=== PATIENT | male | born 1995 | race Caucasian/White ===

== ENCOUNTER 2016-07-23 14:30 | Emergency (ER) | payer OTHER ==
[2016-07-23 14:52] VITALS: BP 143/64; RESP 20; TEMP 98.4
[2016-07-23] MEDS ORDERED: IPRATROPIUM-ALBUTEROL 3 ML NEB INHALATION STA (15:12)
--- NOTE | 2016-07-23 15:16 | ED ---
General Adult HPI - General Chief complaint: Upper Respiratory Infection Stated complaint: congestion Time Seen by Provider: 07/23/16 15:11 Source: patient, RN notes reviewed Mode of arrival: ambulatory Limitations: no limitations - History of Present Illness Initial comments: Patient 20-year-old male who presents emergency room today with a chief complaint cough congestion 7 days. He does admit that he was at [facility] emergency room today's ago. Does admit to an x-ray. Admits that he was told he had calmed cold. Advised to continue myop-gal-[id number] medications. This does not seem to be getting any better. States is having more cough congestion. Does admit to positive sputum production it's been green in color. Patient denies any other complaints associated symptoms. Patient denies any recent fever, chills, shortness of breath, chest pain, back pain, abdominal pain , nausea or vomiting, numbness or tingling, dysuria or hematuria, constipation or diarrhea, headaches or visual changes, or any other complaints. - Related Data Home Medications Medication Instructions Recorded Confirmed Dextroamphetamine/Amphetamine 20 mg PO BID 12/12/15 07/23/16 [Adderall] Previous Rx's Medication Instructions Recorded Albuterol Inhaler [Ventolin Hfa 1 - 2 puff INHALATION Q4-6H PRN #1 07/23/16 Inhaler] inhaler Albuterol Nebulized [Ventolin 2.5 mg INHALATION Q4H PRN 10 Days 07/23/16 Nebulized] predniSONE 60 mg PO DAILY 5 Days 07/23/16 Allergies Allergy/AdvReac Type Severity Reaction Status Date / Time No Known Allergies Allergy Verified 07/23/16 14:52 Review of Systems ROS Statement: Those systems with pertinent positive or pertinent negative responses have been documented in the HPI. ROS Other: All systems not noted in ROS Statement are negative. 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 Eye: Pupils are equal, round and reactive to light, extra-ocular movements are intact. No nystagmus. There is normal conjunctiva bilaterally. No signs of icterus. Ears, nose, mouth and throat: There are moist mucous membranes and no oral lesions. Neck: The neck is supple, there is no tenderness or JVD. Cardiovascular: There is a regular rate and rhythm. No murmur, rub or gallop is appreciated. Respiratory: Expiratory wheeze bilaterally, respirations are non-labored, breath sounds are equal. No stridor, rales, or rhonchi. Musculoskeletal: Normal ROM, no tenderness. Strength 5/5. Sensation intact. Pulses equal bilaterally 2+. Neurological: A&O x 3. CN II-XII intact, There are no obvious motor or sensory deficits. Coordination appears grossly intact. Speech is normal. Skin: Skin is warm and dry and no rashes or lesions are noted. Psychiatric: Cooperative, appropriate mood & affect, normal judgment. Limitations: no limitations Course Vital Signs 07/23/16 14:50 Temperature 98.4 F Pulse Rate 114 H Respiratory 20 Rate Blood Pressure 143/64 O2 Sat by Pulse 94 L Oximetry Medical Decision Making - Medical Decision Making X-ray reviewed shows no acute abnormalities. No sign of pneumonia. Started on breathing treatments and steroids. Advised follow-up over the next 2 days or return if any symptoms increase or worsen. Disposition Clinical Impression: Acute bronchitis Disposition: HOME SELF-CARE Condition: Good Instructions: Acute Bronchitis (ED) Additional Instructions: Please use medication as discussed. Please follow-up with family doctor in the next 2 days of symptoms have not improved. Please return to emergency room if the symptoms increase or worsen or for any other concerns. Prescriptions: Albuterol Inhaler [Ventolin Hfa Inhaler] 1 - 2 puff INHALATION Q4-6H PRN #1 inhaler PRN Reason: Cough Albuterol Nebulized [Ventolin Nebulized] 2.5 mg INHALATION Q4H PRN 10 Days PRN Reason: Cough predniSONE 60 mg PO DAILY 5 Days Time of Disposition: 15:44
--- NOTE | 2016-07-23 15:22 | XR ---
EXAMINATION TYPE: XR chest 2V DATE OF EXAM: 07/23/2016 3:20 PM COMPARISON: 07/16/2014 HISTORY: Pain TECHNIQUE: Frontal and lateral views of the chest are obtained. FINDINGS: There is no focal air space opacity, pleural effusion, or pneumothorax seen. The cardiac silhouette size is within normal limits. The osseous structures are intact. IMPRESSION: No acute cardiopulmonary process.
[2016-07-23 15:54] VITALS: PULSE 104
== END 2016-07-23 15:54 | disposition home or self-care (01) ==
LOC: EC 14:30
DX: J20.9 Acute bronchitis, unspecified (principal); F17.200 Nicotine dependence, unspecified, uncomplicated; Z79.899 Other long term (current) drug therapy
CPT/HCPCS: 71020; 94640; 99283

== ENCOUNTER 2017-06-17 12:36 | Emergency (ER) | payer OTHER ==
[2017-06-17 12:53] VITALS: RESP 18
--- NOTE | 2017-06-17 13:10 | ED ---
General Adult HPI - General Chief complaint: ENT Stated complaint: face swelling Time Seen by Provider: 06/17/17 13:10 Source: patient Mode of arrival: ambulatory Limitations: no limitations - History of Present Illness Initial comments: Mathieu Shaikh is a 21-year-old male who presents to the emergency department today for evaluation of left lip swelling for 2 days duration. Patient reports he noticed lip swelling 2 days ago, is progressively worsened and is associated with significant pain. He does note that there is a small scab on the left lip but only minimal drainage. He has no history of skin infections and has not been on antibiotics in the past. He denies any trauma to the lip. He denies any fevers or chills. He reports he's had difficulty eating due to the swelling of his lip that he has been able to drink plenty. Patient also states that he does have a history of a rapid heart rate and is on Adderall daily which contributes to his rapid heart rate. - Related Data Home Medications Medication Instructions Recorded Confirmed Dextroamphetamine/Amphetamine 20 mg PO BID 12/12/15 06/17/17 [Adderall] diphenhydrAMINE [Benadryl] 50 mg PO HS PRN 06/17/17 06/17/17 Allergies Allergy/AdvReac Type Severity Reaction Status Date / Time No Known Allergies Allergy Verified 06/17/17 13:04 Review of Systems ROS Statement: Those systems with pertinent positive or pertinent negative responses have been documented in the HPI. ROS Other: All systems not noted in ROS Statement are negative. Constitutional: Denies: fever ENT: Reports: other (Swelling of left upper lip). 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 History of Any Multi-Drug Resistant Organisms: None Reported Additional Past Surgical History / Comment(s): oral surgery Past Psychological History: No Psychological Hx Reported Smoking Status: Current every day smoker Past Alcohol Use History: None Reported Past Drug Use History: Marijuana General Exam Limitations: no limitations General appearance: alert, in no apparent distress Head exam: Present: atraumatic, normocephalic Eye exam: Present: normal appearance, PERRL ENT exam: Present: other (left upper lip swollen, small scab on lateral griffin border, fluctuant area palpated in lip) Neck exam: Absent: lymphadenopathy Respiratory exam: Absent: respiratory distress Cardiovascular Exam: Present: normal rhythm, tachycardia GI/Abdominal exam: Absent: soft, distended Extremities exam: Present: normal inspection Back exam: Present: normal inspection Neurological exam: Present: alert, oriented X3 Psychiatric exam: Present: normal affect, normal mood Skin exam: Present: warm, dry, intact Course Vital Signs 06/17/17 06/17/17 12:49 13:08 Temperature 98.4 F Pulse Rate 144 H 127 H Respiratory 18 Rate Blood Pressure 135/64 O2 Sat by Pulse 99 99 Oximetry Procedures - Incision & Drainage Consent Obtained: verbal consent Time Out Performed?: Yes Site: lip Anesthetic Used: lidocaine 1% I&D Cleaning Method: Chloroprep Needle Aspiration Performed?: Yes (purulent) I&D Drainage Obtained: Pus, Blood Culture Obtained?: No Patient Tolerated Procedure: well, no complications Medical Decision Making - Medical Decision Making Patient was seen and evaluated, history was obtained from patient Physical exam is concerning for a lumbar large abscess of the left upper lip, there is no surrounding lymphadenopathy the patient is otherwise well-appearing There is a scab on the lateral lip Warm hot washcloth was applied to the lip, the patient was anesthetized with 1% lidocaine, needle apsiration of purulent fluid was obtained. The scab was easily removed and copious purulent discharge was expressed from the lip PO Clindamycin was ordered and patient will be discharged on PO clinda for oral infection Disposition Clinical Impression: Abscess Disposition: HOME SELF-CARE Condition: Good Instructions: Abscess (ED) Referrals: Marixa Stern MD [Primary Care Provider] - 1-2 days Time of Disposition: 14:12
[2017-06-17] MEDS ORDERED: CLINDAMYCIN 150 MG CAP PO STA (13:55)
[2017-06-17 14:33] VITALS: BP 130/70; PULSE 115; TEMP 97.9
== END 2017-06-17 14:32 | disposition home or self-care (01) ==
LOC: EC 12:36
DX: K13.0 Diseases of lips (principal); F17.200 Nicotine dependence, unspecified, uncomplicated; Z79.899 Other long term (current) drug therapy
CPT/HCPCS: 10060; 99283

== ENCOUNTER → 2018-04-19 | Outpatient (CLI) | payer OTHER ==
--- NOTE | 2018-04-19 17:28 | MR ---
EXAMINATION TYPE: MR lumbar spine wo con DATE OF EXAM: 04/19/2018 COMPARISON: Prior lumbar MRI 10/24/2015 HISTORY: Low Back Pain TECHNIQUE: Multiplanar, multisequence images of the lumbar spine were acquired. L1-L2: Normal disc appearance without desiccation. No herniation, protrusion or disc bulging. No ca nal stenosis is present. Foramina are patent bilaterally. L2-L3: Normal disc appearance without desiccation. No herniation, protrusion or disc bulging. No ca nal stenosis is present. Foramina are patent bilaterally. L3-L4: Normal disc appearance without desiccation. No herniation, protrusion or disc bulging. No ca nal stenosis is present. Foramina are patent bilaterally. L4-L5: Loss of disc height and signal is present as on prior compatible with disc desiccation and deg enerative disc disease, there is a central posterior disc herniation as on prior exam causing some mi ld central stenosis similar to prior. Lateral extension of endplate disc complex again noted causing some mild foraminal encroachment. L5-S1: Loss of disc height and signal is again seen compatible disc desiccation and degenerative disc disease, there is a posterior central, right paracentral disc herniation contacting the anterior the lana sac and likely the proximal S1 nerve root greater on the right than on the left. No significant c entral canal stenosis. Lateral extension of endplate disc complex again seen encroaches somewhat on t he foramina. Lumbar segments are intact. No paraspinal masses are identified. Conus medullaris has a normal appe arance. Lumbar vertebral bodies show stable height, alignment, bone marrow signal. IMPRESSION: Degenerative disc disease is similar to prior exam. There are disc herniations as described.
--- NOTE | 2018-04-20 12:47 | MR ---
EXAMINATION TYPE: MR shoulder RT wo con DATE OF EXAM: 04/19/2018 COMPARISON: None HISTORY: Rt SHoulder Pain TECHNIQUE: Multiplanar, multisequence imaging of the right shoulder is performed without contrast. FINDINGS: Rotator Cuff: There is abnormal increased signal at the level of the rotator cuff insertion suggestiv e of a partial thickness tear of the infraspinatus tendon, fluid signal is present at this level Acromioclavicular Joint: Mild fluid signal present, no significant hypertrophic change however Glenohumeral Joint: Intact Labrum: The labrum appears grossly intact given limitation of non-arthrogram study. Biceps Tendon: The long head of biceps is in normal location within bicipital groove. Some fluid sign al present along the long head of biceps tendon Bone marrow signal: No focal abnormal marrow signal is appreciated. Other: No additional significant abnormality is appreciated. IMPRESSION: Partial thickness tear the rotator cuff tendon
== END ==
LOC: RADMRIMAIN 11:41
PROVIDERS: ATTEND Internal Medicine
DX: M51.26 Other intervertebral disc displacement, lumbar region (principal); M51.36 Other intervertebral disc degeneration, lumbar region; S46.011A Strain of muscle(s) and tendon(s) of the rotator cuff of right shoulder, initial encounter
CPT/HCPCS: 72148

== ENCOUNTER 2019-01-19 10:33 | Emergency (ER) | payer OTHER ==
[2019-01-19 10:38] VITALS: RESP 18
[2019-01-19] MEDS ORDERED: methylPREDNISolone SOD SUCCI 125 MG/2 ML VIAL IM ONE (11:10)
[2019-01-19] MEDS ORDERED: HYDROmorphone 1 MG/ML 1 ML SYRINGE IM STA (11:10)
[2019-01-19] MEDS ORDERED: ORPHENADRINE 30 MG/ML 2 ML VIAL IM STA (11:10)
[2019-01-19] MEDS ORDERED: KETOROLAC 60 MG/2 ML VIAL IM STA (11:10)
--- NOTE | 2019-01-19 11:14 | ED ---
Back Pain HPI - General Chief Complaint: Back Pain/Injury Stated Complaint: Back pain Time Seen by Provider: 01/19/19 10:44 Source: patient, RN notes reviewed, old records reviewed Limitations: physical limitation - History of Present Illness Initial Comments: Patient is a 23-year-old male who presents emergency Department complaining of back pain. Getting worse over the past week. Patient reports that he is scheduled for an MRI in 2 weeks but will not be able to wait that long due to this pain. Patient reports he took a week off of work. Patient states that he went to see Dr. Alvarado he was given 6 Falcon rechecked the last 2 today. Patient states he's had no saddle anesthesias. Patient denies any changes in urination or bowel habits. Patient states that he's had pain shooting down the left leg. He denies any other symptoms. Patient reports that he has had multiple scans x- rays. He went to [facility] on Saturday for similar complaints. - Related Data Home Medications Medication Instructions Recorded Confirmed Dextroamphetamine/Amphetamine 20 mg PO TID 12/12/15 01/19/19 [Adderall] HYDROcodone/APAP 10-325MG [Falcon 1 tab PO BID PRN 01/19/19 01/19/19 10-325] Previous Rx's Medication Instructions Recorded HYDROcodone/APAP 5-325MG [Falcon 1 tab PO Q6HR PRN #12 tab 01/19/19 5-325] Ibuprofen 600 mg PO TID #20 tablet 01/19/19 Orphenadrine [Norflex] 100 mg PO Q12H #15 tablet.er 01/19/19 Allergies Allergy/AdvReac Type Severity Reaction Status Date / Time No Known Allergies Allergy Verified 01/19/19 10:46 Review of Systems ROS Statement: Those systems with pertinent positive or pertinent negative responses have been documented in the HPI. ROS Other: All systems not noted in ROS Statement are negative. Past Medical History Past Medical History: No Reported History Additional Past Medical History / Comment(s): right ankle tumor, chronic back pain History of Any Multi-Drug Resistant Organisms: None Reported Additional Past Surgical History / Comment(s): oral surgery Past Psychological History: No Psychological Hx Reported Smoking Status: Current every day smoker Past Alcohol Use History: None Reported Past Drug Use History: Marijuana General Exam - General Exam Comments Initial Comments: This is a 23-year-old male. Alert and oriented. Moderate discomfort. Patient is quite hostile. Limitations: physical limitation General appearance: alert, in no apparent distress Head exam: Present: atraumatic, normocephalic, normal inspection Eye exam: Present: normal appearance, PERRL, EOMI. Absent: scleral icterus, conjunctival injection, periorbital swelling ENT exam: Present: normal exam, mucous membranes moist Neck exam: Present: normal inspection. Absent: tenderness, meningismus, lymphadenopathy Respiratory exam: Present: normal lung sounds bilaterally. Absent: respiratory distress, wheezes, rales, rhonchi, stridor Cardiovascular Exam: Present: regular rate, normal rhythm, normal heart sounds. Absent: systolic murmur, diastolic murmur, rubs, gallop, clicks GI/Abdominal exam: Present: soft, normal bowel sounds. Absent: distended, tenderness, guarding, rebound, rigid Extremities exam: Present: normal inspection, full ROM, normal capillary refill. Absent: tenderness, pedal edema, joint swelling, calf tenderness Back exam: Present: normal inspection, other (tenderness over sciatic notch. ) Neurological exam: Present: alert, oriented X3, CN II-XII intact Psychiatric exam: Present: normal affect, normal mood Skin exam: Present: warm, dry, intact, normal color. Absent: rash Course Vital Signs 01/19/19 10:36 Temperature 97.5 F L Pulse Rate 94 Respiratory 18 Rate Blood Pressure 127/75 O2 Sat by Pulse 98 Oximetry Medical Decision Making - Medical Decision Making This patient's a 23-year-old male presents today with complaints of lower back pain rating on the left leg. His evidence of has a straight leg test. Normal pulses bilaterally. Patient denies any saddle anesthesia. Patient was quite hot hostile when I discussed that he needs to receive his MRI in 2 weeks. Patient stated "I need to Shit myself here for an MRI, I'll Do it." I discussed that protocol to get MRIs in the emergency department for leg sciatic back pain. He has no red flag symptoms. Patient was given IM pain medications. I discussed I'll discharge the Patient with a course of muscle relaxers and anti- inflammatory medicine. Discussed following up with orthopedic cost specialist. All questions answered. Disposition Clinical Impression: Lower back pain, Sciatica Disposition: HOME SELF-CARE Condition: Good Instructions (If sedation given, give patient instructions): Lumbar Radiculopathy (ED), Sciatica (ED) Additional Instructions: Patient is to call to see if you can get the MRI appointment sooner. Take the medications as prescribed. Have close follow-up with primary care doctor. Return to emergency department if any alarming signs or symptoms occur. Prescriptions: Ibuprofen 600 mg PO TID #20 tablet HYDROcodone/APAP 5-325MG [Falcon 5-325] 1 tab PO Q6HR PRN #12 tab PRN Reason: Pain Orphenadrine [Norflex] 100 mg PO Q12H #15 tablet.er Is patient prescribed a controlled substance at d/c from ED?: Yes If prescribed controlled substance>3 days was MAPS reviewed?: Prescribed <3 Days If opioid is for acute pain is fill amount 7 days or less?: Yes If Rx opioid, was Start Talking consent form obtained?: Yes Referrals: Marixa Stern MD [Primary Care Provider] - 1-2 days Deirdre Contreras DO [Doctor of Osteopathic Medicine] - 1-2 days Time of Disposition: 11:49
[2019-01-19 12:16] VITALS: BP 128/70; PULSE 89; TEMP 97.7
== END 2019-01-19 12:15 | disposition home or self-care (01) ==
LOC: EC 10:33
DX: M54.42 Lumbago with sciatica, left side (principal); F17.200 Nicotine dependence, unspecified, uncomplicated
CPT/HCPCS: 99283; 96372 ×4; J2360; J2930; J1885; J1170

== ENCOUNTER → 2019-01-28 | Outpatient (CLI) | payer OTHER ==
--- NOTE | 2019-01-29 14:55 | MR ---
EXAMINATION TYPE: MR lumbar spine wo con DATE OF EXAM: 01/28/2019 COMPARISON: 04/19/2018 HISTORY: Patient presents with chronic low back pain getting worse after a fall 2 weeks ago. TECHNIQUE: Multiplanar, multisequence images of the lumbar spine were acquired. FINDINGS: The vertebral bodies maintain normal vertebral body heights and alignment of the lumbar spi ne. The bone marrow signal is lower limits of normal. Conus medullaris is unremarkable terminating at T12-L1. Disc desiccation is seen at L4-L5 and L5-S1 with rudimentary disc at S1-S2. L1-L2: Normal disc appearance without desiccation. No herniation, protrusion or disc bulging. No ca nal stenosis is present. Foramina are patent bilaterally. L2-L3: Normal disc appearance without desiccation. No herniation, protrusion or disc bulging. No ca nal stenosis is present. Foramina are patent bilaterally. L3-L4: There is a small broad-based disc bulge without spinal canal stenosis nor neural foraminal verena rowing. L4-L5: There is a left paracentral disc herniation that has progressed in the interim. This now resol lloyd moderate spinal canal stenosis, particularly within the left lateral spinal canal is mild right n euroforaminal narrowing and moderate left foraminal narrowing. There is also impression upon the form ing L5 nerve root on the left. L5-S1: There is overall similar degree of the known right paracentral disc herniation abutting and pl aced a slight mass effect upon the forming S1 nerve root creating mild spinal canal stenosis and mini mal bilateral neural foraminal narrowing. IMPRESSION: 1. Progression of the left paracentral disc herniation size in comparison to the prior of 04/19/2018 n ow creating moderate spinal canal stenosis, particularly within the left lateral aspect of the spinal canal as well as on her left neural foraminal narrowing. There is impression upon the forming left L 5 nerve root. 2. Overall similar degree of the known right paracentral disc herniation at L5-S1 with slight mass ef fect on the forming right S1 nerve root and mild spinal canal stenosis. 3. No new compression deformity or bone marrow edema in this patient with increasing chronic low back pain after fall. 4. Bone marrow signal is lower limits of normal, which can be seen in chronic diseases, obesity, toba account support rep abuse, anemia or less likely myeloproliferative disorders. Correlate with CBC and patient's socia l history.
== END | disposition home or self-care (01) ==
LOC: RADMRIMAIN 16:37
PROVIDERS: ATTEND Internal Medicine
DX: M48.061 Spinal stenosis, lumbar region without neurogenic claudication (principal); M51.86 Other intervertebral disc disorders, lumbar region
CPT/HCPCS: 72148

== ENCOUNTER 2019-10-29 21:49 | Emergency (ER) | payer OTHER ==
--- NOTE | 2019-10-29 22:43 | ED ---
ENT HPI - General Chief complaint: ENT Stated complaint: sinus infection Time Seen by Provider: 10/29/19 22:01 Source: patient Mode of arrival: ambulatory Limitations: no limitations - History of Present Illness Initial comments: Patient is a 24-year-old male presenting to emergency Department with a chief complaint of a sinus infection. Patient states she developed the infection about 5 days ago. States he went to his primary care who given a prescription of amoxicillin and Levaquin. Patient states he only took 2 doses of the Levaquin but is not felt any significant improvement. Patient has a history of sinus infections. States he now feels some pressure behind his left ear but not pain. Does not report any pain with tugging of the year. Denies taking any medications to alleviate his symptoms. Patient is a smoker. Does report states, green nasal discharge. Does report occasional frontal sinus headache. - Related Data Home Medications Medication Instructions Recorded Confirmed Dextroamphetamine/Amphetamine 20 mg PO TID 12/12/15 01/19/19 [Adderall] HYDROcodone/APAP 10-325MG [[place] 1 tab PO BID PRN 01/19/19 01/19/19 10-325] Previous Rx's Medication Instructions Recorded HYDROcodone/APAP 5-325MG [[place] 1 tab PO Q6HR PRN #12 tab 01/19/19 5-325] Ibuprofen 600 mg PO TID #20 tablet 01/19/19 Orphenadrine [Norflex] 100 mg PO Q12H #15 tablet.er 01/19/19 Allergies Allergy/AdvReac Type Severity Reaction Status Date / Time No Known Allergies Allergy Verified 10/29/19 21:59 Review of Systems ROS Statement: Those systems with pertinent positive or pertinent negative responses have been documented in the HPI. ROS Other: All systems not noted in ROS Statement are negative. Past Medical History Past Medical History: No Reported History Additional Past Medical History / Comment(s): right ankle tumor, chronic back pain History of Any Multi-Drug Resistant Organisms: None Reported Additional Past Surgical History / Comment(s): oral surgery Past Psychological History: No Psychological Hx Reported Smoking Status: Current every day smoker Past Alcohol Use History: None Reported Past Drug Use History: Marijuana General Exam Limitations: no limitations General appearance: alert, in no apparent distress Head exam: Present: atraumatic, normocephalic, normal inspection Eye exam: Present: normal appearance, PERRL, EOMI Pupils: Present: normal accommodation ENT exam: Present: normal exam, normal oropharynx (Mild maxillary sinus tenderness.), mucous membranes moist, TM's normal bilaterally (No pain with tugging of the ears. External auditory canal within normal limits. No erythematous tympanic membrane or bulging.), normal external ear exam Neck exam: Present: normal inspection, full ROM Respiratory exam: Present: normal lung sounds bilaterally. Absent: respiratory distress, wheezes Cardiovascular Exam: Present: regular rate, normal rhythm, normal heart sounds Extremities exam: Present: normal inspection, full ROM Back exam: Present: normal inspection, full ROM Neurological exam: Present: alert, oriented X3 Psychiatric exam: Present: normal affect, normal mood Skin exam: Present: warm, dry, intact, normal color Course Vital Signs 10/29/19 21:56 Temperature 98.9 F Pulse Rate 112 H Respiratory 20 Rate Blood Pressure 144/86 O2 Sat by Pulse 99 Oximetry Medical Decision Making - Medical Decision Making Patient is a 24-year-old male presenting to the emergency department with a chief complaint of a sinus infection. Physical examination patient does have mild maxillary sinus tenderness. Patient is a smoker. I advised the patient to stop taking the Levaquin and amoxicillin. Patient will be started on a seven- day course of Augmentin. Patient was to take medication with food. Patient advised to buy [id number] Zyrtec. I counseled the patient for smoking cessation for greater than 3 minutesReturn parameters thoroughly discussed the patient was understanding and agreeable. Case discussed with physician. Disposition Clinical Impression: Sinus infection, Pressure sensation in left ear Disposition: HOME SELF-CARE Condition: Stable Instructions (If sedation given, give patient instructions): Sinusitis (ED) Additional Instructions: Take [id number] Zyrtec. Stop smoking. Take prescribed medication as directed. Stop using the amoxicillin and Levaquin. Return to emergency department if symptoms worsen. Is patient prescribed a controlled substance at d/c from ED?: No Referrals: Marixa Stern MD [Primary Care Provider] - 1-2 days Time of Disposition: 22:43
[2019-10-29 22:54] VITALS: BP 137/87; PULSE 99; RESP 18; TEMP 98.2
== END 2019-10-29 22:53 | disposition home or self-care (01) ==
LOC: EC 21:49
DX: J32.9 Chronic sinusitis, unspecified (principal); H93.8X2 Other specified disorders of left ear; F17.200 Nicotine dependence, unspecified, uncomplicated; Z79.899 Other long term (current) drug therapy; Z71.6 Tobacco abuse counseling
CPT/HCPCS: 99283; 99406

== ENCOUNTER → 2021-07-26 | Outpatient (CLI) | payer OTHER ==
--- NOTE | 2021-07-27 03:05 | MR ---
EXAMINATION TYPE: MR knee RT wo con DATE OF EXAM: 07/26/2021 COMPARISON: HISTORY: Right knee pain/injury May 2021. Multiplanar multiecho imaging of the right knee without contrast. There is large knee joint effusion. The anterior and posterior cruciate ligaments are intact. The pat judy is intact. There is no evidence of a fracture. Collateral ligaments are intact. There is horizontal tear through the posterior horn of the medial meniscus extending to the inferior surface. The anterior horn of the medial meniscus shows some mild thinning. There is mild subcutaneou s edema over the anterior patella. IMPRESSION: Large knee joint effusion. No fracture. Large horizontal tear of the posterior horn medial meniscus. Degenerative thinning of the anterior ho rn of the medial meniscus.
== END | disposition home or self-care (01) ==
LOC: RADMRIMAIN 17:42
PROVIDERS: ATTEND Family Medicine
DX: M25.461 Effusion, right knee (principal); M23.321 Other meniscus derangements, posterior horn of medial meniscus, right knee; M17.11 Unilateral primary osteoarthritis, right knee

== ENCOUNTER 2024-01-20 14:26 | Inpatient (IN) | payer OTHER ==
[~2024-01-20 14:26] MED LIST: HEPARIN SOD,PORK IN 0.45% NACL 250 ML IV ONE; HEPARIN SODIUM 1,000 UN/ML (10ML VL) ONE; HYDROmorphone 0.5 MG/0.5 ML SYRINGE ONE; KETOROLAC 15 MG/ML 1 ML VIAL ONE
[2024-01-20] MEDS ORDERED: KETOROLAC 15 MG/ML 1 ML VIAL ONE (20:19)
[2024-01-21] MEDS ORDERED: HEPARIN SOD,PORK IN 0.45% NACL 250 ML IV ONE ×2 (04:09→18:39)
[2024-01-21] MEDS ORDERED: KETOROLAC 15 MG/ML 1 ML VIAL ONE ×4 (04:14→23:54)
[2024-01-21] MEDS ORDERED: HYDROcodone/APAP 5-325MG 1 EACH TAB ONE (20:29)
[2024-01-22] MEDS ORDERED: HYDROcodone/APAP 5-325MG 1 EACH TAB ONE (05:06)
[2024-01-22] MEDS ORDERED: APIXABAN 5 MG TAB ONE (12:20)
--- NOTE | 2024-02-18 12:41 | US ---
Patient: Mathieu Shaikh Ordering Physician: Unknown, Unknown ID: [id number] Phone, Pager: Phone: N/A Pager: N/A : [phone] Age/Gender: 28Y, O Primary Location: N/A Procedure: US venous doppler dupl ex LE BI Study Date: 01/21/2024 10:37:00 AM EXAMINATION TYPE: US venous doppler duplex LE BI DATE OF EXAM: 02/08/2024 3:49 PM COMPARISON: NONE CLINICAL INDICATION: Pulmonary embolus SIDE PERFORMED: Bilateral TECHNIQUE: The lower extremity deep venous system is examined utilizing real time linear array sonog ezekiel with graded compression, doppler sonography and color-flow sonography. VESSELS IMAGED: Common Femoral Vein Deep Femoral Vein Greater Saphenous Vein * Femoral Vein Popliteal Vein Small Saphenous Vein * Proximal Calf Veins (* superficial vessels) Right Leg: Negative for DVT Left Leg: Negative for DVT IMPRESSION: Grayscale, color doppler, spectral doppler imaging performed of the deep veins of the lo wer extremities. There is normal flow, compressibility, vascular waveforms.
== END 2024-01-22 13:13 | disposition home or self-care (01) | DRG 134 ==
LOC: 3SCARD 14:26
PROVIDERS: ADMIT Family Medicine; ATTEND Family Medicine
DX: I26.99 Other pulmonary embolism without acute cor pulmonale (principal); F17.210 Nicotine dependence, cigarettes, uncomplicated; E66.9 Obesity, unspecified; Z83.2 Family history of diseases of the blood and blood-forming organs and certain disorders involving the immune mechanism
CPT/HCPCS: 80048; 80053; 85025; 85027; 85379; 85610; 85730; 87636; 93306; 93970; 96374; 96375; 99285